=== PATIENT | female | born 1945 | race Native Hawaiian/Other Pacific Islander ===

== ENCOUNTER 2020-04-11 17:41 | Outpatient (CLI) | payer OTHER, MEDICARE ==
[2020-04-11 18:04] LABS: PLATELET COUNT 192 K/uL (152-353)
== END 2020-04-11 23:26 | disposition home or self-care (01) ==
LOC: LAB 17:41
PROVIDERS: ATTEND Nurse Practitioner Family
DX: Z00.00 Encounter for general adult medical examination without abnormal findings (principal); I10 Essential (primary) hypertension; E55.9 Vitamin D deficiency, unspecified; E53.8 Deficiency of other specified B group vitamins; Z79.899 Other long term (current) drug therapy; R53.83 Other fatigue; E03.8 Other specified hypothyroidism; Z78.0 Asymptomatic menopausal state
CPT/HCPCS: 80061; 82306; 82607; 82670; 83036; 84144; 84402; 84403; 84443; 85027

== ENCOUNTER 2020-07-26 15:14 | Outpatient (CLI) | payer OTHER, MEDICARE | END 2020-07-26 20:17 | disposition home or self-care (01) | LOC: LAB 15:14 | PROVIDERS: ATTEND Family Medicine | DX: E66.9 Obesity, unspecified (principal); R53.83 Other fatigue; R53.81 Other malaise; E55.9 Vitamin D deficiency, unspecified; E53.8 Deficiency of other specified B group vitamins | CPT/HCPCS: 82306; 82607 ==

== ENCOUNTER 2020-10-20 14:46 | Outpatient (CLI) | payer OTHER, MEDICARE ==
[2020-10-20 15:49] LABS: POTASSIUM 4.2 mmol/L (3.6-5.2)
== END 2020-10-20 22:00 | disposition home or self-care (01) ==
LOC: LAB 14:46
PROVIDERS: ATTEND Nurse Practitioner Family
DX: Z00.00 Encounter for general adult medical examination without abnormal findings (principal); E55.9 Vitamin D deficiency, unspecified; E03.8 Other specified hypothyroidism; I10 Essential (primary) hypertension; E53.8 Deficiency of other specified B group vitamins; F41.8 Other specified anxiety disorders; Z79.899 Other long term (current) drug therapy; R53.83 Other fatigue; R53.81 Other malaise
CPT/HCPCS: 80053; 80061; 82306; 82607; 84439; 84443